=== PATIENT | female | born 1950 | race Caucasian/White ===

== ENCOUNTER 2020-08-30 16:57 | Inpatient (IN) ==
[2020-08-30] MEDS ORDERED: PHENYLEPHRINE 10 MG/1 ML VIAL IV ONE ×2 (17:15→20:06)
[2020-08-30] MEDS ORDERED: PAPAVERINE 60 MG/2 ML VIAL ONE (17:17)
[2020-08-30] MEDS ORDERED: VANCOMYCIN 1,000 MG VIAL ONE ×2 (17:18→18:06)
[2020-08-30] MEDS ORDERED: VANCOMYCIN 500 MG VIAL ONE (17:18)
[2020-08-30] MEDS ORDERED: MIDAZOLAM 10 MG/2 ML VIAL ONE ×4 (17:19→17:20)
[2020-08-30] MEDS ORDERED: SUFentanil 250 MCG/5 ML AMP ONE (17:22)
[2020-08-30] MEDS ORDERED: VECURONIUM 10 MG VIAL IV ONE ×3 (17:23→19:26)
[2020-08-30] MEDS ORDERED: ETOMIDATE 40 MG/20 ML VIAL IV ONE (17:25)
[2020-08-30] MEDS ORDERED: LIDOCAINE 2% 5 ML VIAL ONE ×2 (17:25→20:15)
[2020-08-30] MEDS ORDERED: AMINOCAPROIC ACID 5,000 MG/20 ML VIAL ONE (17:35)
[2020-08-30 18:22] LABS: ABG Base Excess -0.9 MMOL/L (-2.5-2.5); ABG HCO3 20.8 MMOL/L (20-26); ABG Oxygen Saturation 96.7 % (95-100); ABG PCO2 25.8 MM HG (35-48); ABG PH 7.524 (7.35-7.45); ABG PO2 86.2 MM HG (80-95); ABG TCO2 21.6 MMOL/L (23-27); Glucose Heart Surgery 148 MG/DL (74-106); Hemoglobin Heart Surgery 11.3 G/DL (12.0-16.0); Ionized Calcium Arterial 1.03 MMOL/L (1.21-1.46); Potassium Heart/CVR 3.4 MMOL/L (3.5-5.1); Sodium Heart/CVR 136 MMOL/L (135-145)
[2020-08-30 18:23] LABS: Patient Temperature 37 CELCIUS
[2020-08-30 19:08] LABS: Hematocrit Heart Surgery 19.9 PERCENT (37-47); PCO2 Patient Temp Venous 32.5 MM HG; PH Patient Temp Venous 7.461; Potassium Heart/CVR 4.6 MMOL/L (3.5-5.1); VBG Base Excess -0.2 MEQ/L (0-4); VBG HCO3 24.1 MEQ/L (24-28); VBG Oxygen Saturation 80.7 %; VBG PCO2 35.8 MMHG (41-51); VBG PH 7.432; VBG Total CO2 22.8 MMOL/L
[2020-08-30] MEDS ORDERED: PHENYLEPHRINE DRIP 40 MG/250 ML PREMIX IV ONE (19:09)
[2020-08-30] MEDS ORDERED: ALBUMIN 5% 12.5 GM/250 ML VIAL IV ONE (19:09)
[2020-08-30] MEDS ORDERED: POTASSIUM CHLORIDE RIDER 100 ML IV ONE (19:09)
[2020-08-30] MEDS ORDERED: PROTAMINE SULFATE 50 MG/5 ML VIAL IV ONE ×3 (19:10→21:50)
[2020-08-30 19:12] LABS: Hemoglobin Heart Surgery 6.3 G/DL (12.0-16.0)
[2020-08-30] MEDS ORDERED: methylPREDNISolone SOD SUC 125 MG/2 ML VIAL ONE (19:19)
[2020-08-30] MEDS ORDERED: diphenhydrAMINE 50 MG/1 ML VIAL ONE (19:19)
[2020-08-30] MEDS ORDERED: FAMOTIDINE 20 MG/2 ML VIAL IV ONE (19:21)
[2020-08-30] MEDS ORDERED: SODIUM CHLORIDE 0.9% 500 ML IV ONE (19:26)
[2020-08-30] MEDS ORDERED: LACTATED RINGERS 1,000 ML IV ONE (19:26)
[2020-08-30] MEDS ORDERED: SODIUM CHLORIDE 0.9% 1,000 ML IV ONE (19:26)
[2020-08-30] MEDS ORDERED: EPINEPHrine 1 MG/10 ML SYRINGE ONE (19:27)
[2020-08-30] MEDS ORDERED: PHENYLEPHRINE 1 MG/10 ML SYRINGE IV ONE (19:27)
[2020-08-30] MEDS ORDERED: HEPARIN/NACL 0.9% 2 UNITS/ML 1,000 ML IV ONE (19:27)
[2020-08-30] MEDS ORDERED: CALCIUM CHLORIDE 1,000 MG/10 ML VIAL IV ONE (19:29)
[2020-08-30] MEDS ORDERED: NITROGLYCERIN DRIP 50 MG/250 ML BOTTLE IV ONE (19:29)
[2020-08-30] MEDS ORDERED: THROMBIN TOPICAL (RECOMBINANT) 5,000 UNIT VIAL TOP ONE (19:36)
[2020-08-30 20:01] LABS: ABG Base Excess -2.5 MMOL/L (-2.5-2.5); ABG HCO3 22.3 MMOL/L (20-26); ABG PCO2 33.1 MM HG (35-48); ABG PH 7.419 (7.35-7.45); ABG TCO2 19.9 MMOL/L (23-27); Glucose Heart Surgery 306 MG/DL (74-106); Hematocrit Heart Surgery 25.4 PERCENT (37-47); Hemoglobin Heart Surgery 8.1 G/DL (12.0-16.0); Potassium Heart/CVR 4.8 MMOL/L (3.5-5.1)
[2020-08-30 20:05] LABS: Ionized Calcium Arterial 1.03 MMOL/L (1.21-1.46); PCO2 Patient Temp Arterial 33.1 MMHG; PH Patient Temp Arterial 7.419; Patient Temperature 37 CELCIUS; Sodium Heart/CVR 132 MMOL/L (135-145)
[2020-08-30] MEDS ORDERED: SODIUM CHLORIDE 0.9% 250 ML IV ONE (20:06)
[2020-08-30] MEDS ORDERED: ALBUMIN 25% 25 GM/100 ML VIAL IV ONE (20:13)
[2020-08-30] MEDS ORDERED: FUROSEMIDE 20 MG/2 ML VIAL ONE (20:14)
[2020-08-30] MEDS ORDERED: MANNITOL 100 GM/500 ML BAG IV ONE (20:14)
[2020-08-30] MEDS ORDERED: DEXTROSE 5% KCL 20 MEQ 20 MEQ/1,000 ML BAG IV ONE (20:14)
[2020-08-30] MEDS ORDERED: MAGNESIUM SULFATE 5 GM/10 ML VIAL IV ONE (20:14)
[2020-08-30] MEDS ORDERED: HEPARIN 10,000 UNIT/10 ML VIAL ONE (20:14)
[2020-08-30] MEDS ORDERED: methylPREDNISolone SOD SUC 1,000 MG/8 ML VIAL ONE (20:15)
[2020-08-30] MEDS ORDERED: SODIUM BICARBONATE 50 MEQ/50 ML VIAL IV ONE (20:16)
[2020-08-30] MEDS ORDERED: PROTAMINE SULFATE 250 MG/25 ML VIAL IV ONE (20:16)
[2020-08-30] MEDS ORDERED: DOBUTamine 500 MG/250 ML PREMIX IV ONE ×2 (20:21→21:00)
[2020-08-30] MEDS: DOBUTamine 500 MG/250 ML PREMIX IV PRN (20:42)
[2020-08-30] MEDS ORDERED: CEFUROXIME INJ 1,500 MG in SODIUM CHLORIDE 0.9% 100 ML IV ONE (20:47)
[2020-08-30] MEDS ORDERED: DEXTROSE 50% 25 GM/50 ML VIAL IV PRN ×3 (20:47→21:33)
[2020-08-30] MEDS ORDERED: GLUCAGON 1 MG VIAL IM PRN (20:47)
[2020-08-30 20:53] LABS: ABG Base Excess -2.4 MMOL/L (-2.5-2.5); ABG HCO3 22.4 MMOL/L (20-26); ABG Oxygen Saturation 99.6 % (95-100); ABG PCO2 32.8 MM HG (35-48); ABG PH 7.423 (7.35-7.45); ABG TCO2 19.7 MMOL/L (23-27)
[2020-08-30] MEDS ORDERED: HEPARIN/NACL 0.9% 2 UNITS/ML 500 ML IV ONE (20:53)
[2020-08-30 20:55] LABS: Bilirubin,Urine Negative (Negative); Blood, Urine Small mg/dL (Negative); Glucose,Urine (UA) Negative (Negative); Ketones,Urine Negative (Negative); Nitrite,Urine Negative (Negative); Protein,Urine 30 MG/DL; RBC,Urine 6 /HPF (0-4); Squamous Epithelial Cell,Urine Occasional /HPF (0-10); Urine Appearance CLEAR (Clear); Urine Color Straw (Yellow); Urine Specific Gravity 1.027 (1.001-1.035); Urine Urobilinogen < 2.0 EU/DL (0.2-1.0); WBC,Urine 1 /HPF (0-6)
[2020-08-30] MEDS ORDERED: SEVOFLURANE 1 UNIT/15 MINUTE INH ONE (20:59)
[2020-08-30] MEDS ORDERED: CHLORHEXIDINE 4% SOLN 118 ML BOTTLE TOP SCH (21:00)
[2020-08-30] MEDS ORDERED: SODIUM CHLORIDE 0.9% 1,000 ML IV SCH (21:00)
[2020-08-30] MEDS ORDERED: CHLORHEXIDINE 0.12% ORAL RINSE 60 ML BOTTLE SWISH/SPIT SCH (21:00)
[2020-08-30] MEDS: LACTATED RINGERS 1,000 ML IV PRN ×2 (21:15→23:17)
[2020-08-30] MEDS ORDERED: MIDAZOLAM 2 MG/2 ML VIAL IV PRN (21:33)
[2020-08-30] MEDS ORDERED: MIDAZOLAM 10 MG/2 ML VIAL IV PRN (21:33)
[2020-08-30] MEDS ORDERED: MAGNESIUM SULF RIDER 4 GM in PREMIX 1 EACH IV PRN (21:33)
[2020-08-30] MEDS ORDERED: NITROPRUSSIDE 100 MG in DEXTROSE 5% 250 ML IV PRN (21:33)
[2020-08-30] MEDS ORDERED: MORPHINE 10 MG/1 ML VIAL IV PRN (21:33)
[2020-08-30] MEDS ORDERED: PHENYLEPHRINE DRIP 40 MG/250 ML PREMIX IV PRN (21:33)
[2020-08-30] MEDS ORDERED: VECURONIUM 10 MG VIAL IV PRN ×2 (21:33)
[2020-08-30] MEDS ORDERED: ACETAMINOPHEN 650 MG SUPP RECTAL PRN (21:33)
[2020-08-30] MEDS ORDERED: MAGNESIUM SULF RIDER 2 GM in PREMIX 1 EACH IV PRN (21:33)
[2020-08-30] MEDS ORDERED: CALCIUM CHLORIDE 1,000 MG/10 ML SYRINGE IV PRN (21:33)
[2020-08-30 21:37] LABS: Basophils # 0.1 10*3/uL (0.0-0.2); Basophils % 0.3 % (0.0-0.8); Eosinophils # 0.1 10*3/uL (0.0-0.87); Eosinophils % 0.4 % (0.00-10.9); Hematocrit 27.3 VOL% (35.7-47.0); Hemoglobin 8.5 GM/DL (12.0-16.0); Immature Granulocytes Absolute 0.18 #; Lymphocytes # 1.3 10*3/uL (1.4-4.0); Lymphocytes % 7.2 % (21.3-54.2); Mean Corpuscular HGB Conc 31.1 GM/DL (32-36); Mean Corpuscular Volume 83.2 FL (87-102); Mean Platelet Volume 11.1 FL (9.6-12.0); Monocytes % 2.6 % (1.7-12.7); Neutrophils % 88.5 % (38.7-73.9); Platelet Count 238 T/CUMM (130-400); Red Blood Count 3.28 MC/CUMM (3.8-5.5); Red Cell Distribution Width 15.4 % (9.3-17.3); White Blood Count 17.8 T/CUMM (4-12)
[2020-08-30 21:52] LABS: INR 1.1; Partial Thromboplastin Time 33.9 SECS (23.9-33.8)
[2020-08-30 21:55] LABS: Albumin 2.7 G/DL (3.4-5.0); Bilirubin,Total 0.4 MG/DL (0.2-1.0); Calcium 7.9 MG/DL (8.5-10.1); Total Protein 5.2 G/DL (6.4-8.3)
[2020-08-30 22:15] LABS: CKMB % 11.1 %
[2020-08-30] MEDS: ALBUMIN 5% 12.5 GM in PREMIX 1 EACH IV PRN (22:15)
[2020-08-30 22:16] LABS: Troponin I 95.2 NG/ML (0.00-0.045)
[2020-08-30] MEDS ORDERED: FUROSEMIDE 40 MG/4 ML VIAL IV ONE (22:59)
[2020-08-30] MEDS: SODIUM CHLORIDE 0.45% 1,000 ML IV SCH ×2 (23:09)
[2020-08-30 23:15] LABS: ABG HCO3 20.3 MMOL/L (20-26); ABG Oxygen Saturation 99.9 % (95-100); ABG PCO2 32.7 MM HG (35-48); ABG TCO2 17.9 MMOL/L (23-27); Glucose Heart Surgery 302 MG/DL (74-106); Hematocrit Heart Surgery 27.2 PERCENT (37-47); Hemoglobin Heart Surgery 8.8 G/DL (12.0-16.0); Potassium Heart/CVR 3.9 MMOL/L (3.5-5.1)
[2020-08-30] MEDS: INSULIN REGULAR DRIP 100 ML IV SCH (23:30)
[2020-08-30] MEDS: POTASSIUM CHLORIDE RIDER 20 MEQ in PREMIX 1 EACH IV PRN (23:35)
[2020-08-30] MEDS ORDERED: SODIUM CHLORIDE 0.9% 1,000 ML IV PRN (23:51)
[2020-08-31] MEDS: CHLORHEXIDINE 0.12% ORAL RINSE 60 ML BOTTLE SWISH/SPIT SCH ×3 (00:24→21:13)
[2020-08-31] MEDS: ALBUMIN 5% 12.5 GM in PREMIX 1 EACH IV PRN ×2 (00:25→00:32)
[2020-08-31 00:32] LABS: ABG Base Excess -7.7 MMOL/L (-2.5-2.5); ABG HCO3 18.2 MMOL/L (20-26); ABG Oxygen Saturation 98.3 % (95-100); ABG PCO2 30.4 MM HG (35-48); ABG PH 7.351 (7.35-7.45); ABG TCO2 15.1 MMOL/L (23-27); Glucose Heart Surgery 311 MG/DL (74-106); Hematocrit Heart Surgery 34.9 PERCENT (37-47); Hemoglobin Heart Surgery 11.3 G/DL (12.0-16.0); Potassium Heart/CVR 3.8 MMOL/L (3.5-5.1)
[2020-08-31] MEDS: POTASSIUM CHLORIDE RIDER 20 MEQ in PREMIX 1 EACH IV PRN ×7 (00:37→20:18)
[2020-08-31] MEDS: INSULIN REGULAR 100 UNIT/ML IV PRN (01:18)
[2020-08-31] MEDS: POTASSIUM CHLORIDE RIDER 10 MEQ in PREMIX 1 EACH IV PRN ×4 (01:25→21:14)
[2020-08-31] MEDS ORDERED: VANCOMYCIN 1,000 MG VIAL ONE (01:36)
[2020-08-31] MEDS ORDERED: VECURONIUM 10 MG VIAL IV ONE (01:40)
[2020-08-31] MEDS ORDERED: MIDAZOLAM 10 MG/2 ML VIAL ONE (01:42)
[2020-08-31] MEDS ORDERED: ceFAZolin 1,000 MG VIAL ONE (02:32)
[2020-08-31] MEDS ORDERED: fentaNYL 100 MCG/2 ML VIAL ONE (02:32)
[2020-08-31] MEDS ORDERED: SEVOFLURANE 1 UNIT/15 MINUTE INH ONE ×3 (03:00)
[2020-08-31 03:52] LABS: ABG Base Excess -6.4 MMOL/L (-2.5-2.5); ABG HCO3 17.9 MMOL/L (20-26); ABG Oxygen Saturation 97.4 % (95-100); ABG PO2 111.5 MM HG (80-95); ABG TCO2 18.9 MMOL/L (23-27); Glucose Heart Surgery 247 MG/DL (74-106); Hemoglobin Heart Surgery 8.8 G/DL (12.0-16.0); Potassium Heart/CVR 3.5 MMOL/L (3.5-5.1)
[2020-08-31 04:04] LABS: Basophils % 0.1 % (0.0-0.8); Eosinophils % 0.1 % (0.00-10.9); Hematocrit 27.4 VOL% (35.7-47.0); Hemoglobin 8.8 GM/DL (12.0-16.0); Immature Granulocytes Absolute 0.17 #; Lymphocytes # 0.5 10*3/uL (1.4-4.0); Lymphocytes % 2.6 % (21.3-54.2); Mean Corpuscular HGB Conc 32.1 GM/DL (32-36); Mean Corpuscular Volume 84.8 FL (87-102); Mean Platelet Volume 10.8 FL (9.6-12.0); Monocytes % 4.3 % (1.7-12.7); Neutrophils % 91.9 % (38.7-73.9); Platelet Count 220 T/CUMM (130-400); Red Blood Count 3.23 MC/CUMM (3.8-5.5); Red Cell Distribution Width 15.5 % (9.3-17.3); White Blood Count 17.6 T/CUMM (4-12)
[2020-08-31 04:36] LABS: INR 1.1; PT Patient Result 11.9 SECS (9.8-11.9)
[2020-08-31 04:36] LABS: Bilirubin,Direct 0.34 MG/DL (0.0-0.20); Bilirubin,Total 1.1 MG/DL (0.2-1.0); Calcium 7.1 MG/DL (8.5-10.1); Osmolality,Calculated 294.1 MOS/KG (273-304); Potassium 3.6 MMOL/L (3.5-5.1); Total Protein 5.4 G/DL (6.4-8.3)
[2020-08-31 04:51] LABS: Hypochromasia 1+; Lymphocytes 6 % (20-55); Microcytosis 1+; Ovalocytes Slight; Platelet Estimate Adequate; Segmented Neutrophils 92 % (50-85); Total Cells Counted 100
[2020-08-31] MEDS ORDERED: PANTOPRAZOLE 40 MG VIAL IV ONE (05:20)
[2020-08-31] MEDS ORDERED: AMIODARONE INJ 150 MG in DEXTROSE 5% 100 ML IV ONE (05:20)
[2020-08-31] MEDS ORDERED: AMIODARONE 450 MG/9 ML VIAL IV ONE (05:22)
[2020-08-31] MEDS ORDERED: AMIODARONE 150 MG/3 ML VIAL ONE (05:23)
[2020-08-31] MEDS: AMIODARONE INJ 450 MG in DEXTROSE 5% 241 ML IV SCH ×2 (05:42→21:29)
[2020-08-31] MEDS: CEFUROXIME INJ 1,500 MG in SYRINGE 1 EACH IV SCH ×2 (05:47→16:20)
[2020-08-31 05:48] LABS: ABG Base Excess -7.4 MMOL/L (-2.5-2.5); ABG HCO3 18.4 MMOL/L (20-26); ABG Oxygen Saturation 98.9 % (95-100); ABG PCO2 30.7 MM HG (35-48); ABG PH 7.354 (7.35-7.45); ABG TCO2 15.4 MMOL/L (23-27); Glucose Heart Surgery 263 MG/DL (74-106); Hematocrit Heart Surgery 33.7 PERCENT (37-47); Hemoglobin Heart Surgery 10.9 G/DL (12.0-16.0); Potassium Heart/CVR 3.7 MMOL/L (3.5-5.1)
[2020-08-31] MEDS ORDERED: CALCIUM GLUCONATE 1,000 MG in SODIUM CHLORIDE 0.9% 100 ML IV ONE (06:05)
[2020-08-31] MEDS ORDERED: SODIUM BICARBONATE 50 MEQ/50 ML VIAL IV ONE ×2 (06:06→06:07)
[2020-08-31] MEDS ORDERED: CALCIUM GLUCONATE 1,000 MG/10 ML VIAL IV ONE (06:07)
[2020-08-31 07:45] LABS: ABG Base Excess -1.4 MMOL/L (-2.5-2.5); ABG HCO3 23.3 MMOL/L (20-26); ABG Oxygen Saturation 98.5 % (95-100); ABG PCO2 31.5 MM HG (35-48); ABG PH 7.452 (7.35-7.45); ABG TCO2 20.2 MMOL/L (23-27); Glucose Heart Surgery 212 MG/DL (74-106); Hematocrit Heart Surgery 27.7 PERCENT (37-47); Hemoglobin Heart Surgery 8.9 G/DL (12.0-16.0); Potassium Heart/CVR 3.1 MMOL/L (3.5-5.1)
[2020-08-31 08:12] LABS: Troponin I > 200.000 NG/ML (0.00-0.045)
[2020-08-31] MEDS: MORPHINE 4 MG/1 ML VIAL IV PRN ×2 (09:09→16:27)
[2020-08-31] MEDS ORDERED: NITROPRUSSIDE 50 MG/2 ML VIAL ONE (09:19)
[2020-08-31] MEDS: LACTATED RINGERS 250 ML IV PRN ×2 (09:30→09:50)
[2020-08-31 10:20] LABS: ABG Base Excess -1.1 MMOL/L (-2.5-2.5); ABG HCO3 23.5 MMOL/L (20-26); ABG Oxygen Saturation 97.9 % (95-100); ABG PCO2 39.6 MM HG (35-48); ABG PH 7.386 (7.35-7.45); ABG PO2 99.3 MM HG (80-95); ABG TCO2 21.1 MMOL/L (23-27); Glucose Heart Surgery 158 MG/DL (74-106); Hematocrit Heart Surgery 36.1 PERCENT (37-47); Hemoglobin Heart Surgery 11.7 G/DL (12.0-16.0); Potassium Heart/CVR 3.6 MMOL/L (3.5-5.1)
[2020-08-31 10:53] LABS: Calcium 7.8 MG/DL (8.5-10.1); Osmolality,Calculated 294.7 MOS/KG (273-304); Potassium 3.6 MMOL/L (3.5-5.1)
[2020-08-31 13:54] LABS: ABG Base Excess -0.4 MMOL/L (-2.5-2.5); ABG HCO3 24.1 MMOL/L (20-26); ABG Oxygen Saturation 94.1 % (95-100); ABG PCO2 39.1 MM HG (35-48); ABG PO2 70.6 MM HG (80-95); ABG TCO2 21.9 MMOL/L (23-27); Glucose Heart Surgery 151 MG/DL (74-106); Hematocrit Heart Surgery 33.2 PERCENT (37-47); Hemoglobin Heart Surgery 10.8 G/DL (12.0-16.0); Potassium Heart/CVR 4.2 MMOL/L (3.5-5.1)
[2020-08-31] MEDS: INSULIN REGULAR DRIP 100 ML IV SCH ×2 (16:00→22:36)
[2020-08-31 17:46] LABS: ABG Base Excess -0.4 MMOL/L (-2.5-2.5); ABG Oxygen Saturation 95.4 % (95-100); ABG PCO2 35.5 MM HG (35-48); ABG PH 7.428 (7.35-7.45); ABG PO2 75.7 MM HG (80-95); ABG TCO2 21.1 MMOL/L (23-27); Glucose Heart Surgery 131 MG/DL (74-106); Hematocrit Heart Surgery 33.7 PERCENT (37-47); Hemoglobin Heart Surgery 10.9 G/DL (12.0-16.0); Potassium Heart/CVR 3.5 MMOL/L (3.5-5.1)
[2020-08-31] MEDS ORDERED: FUROSEMIDE 40 MG/4 ML VIAL IV ONE (18:17)
[2020-08-31 20:08] LABS: ABG Base Excess 0.3 MMOL/L (-2.5-2.5); ABG HCO3 23.8 MMOL/L (20-26); ABG Oxygen Saturation 97.7 % (95-100); ABG PCO2 34.6 MM HG (35-48); ABG PH 7.456 (7.35-7.45); ABG PO2 114.6 MM HG (80-95); ABG TCO2 24.9 MMOL/L (23-27); Glucose Heart Surgery 109 MG/DL (74-106); Hemoglobin Heart Surgery 11.1 G/DL (12.0-16.0); Potassium Heart/CVR 3.6 MMOL/L (3.5-5.1)
[2020-08-31] MEDS: SODIUM CHLORIDE 0.45% 1,000 ML IV SCH ×2 (21:58→21:59)
[2020-08-31 23:17] LABS: ABG Base Excess 0.4 MMOL/L (-2.5-2.5); ABG HCO3 24.8 MMOL/L (20-26); ABG Oxygen Saturation 99.1 % (95-100); ABG PCO2 34.7 MM HG (35-48); ABG PH 7.449 (7.35-7.45); ABG TCO2 21.5 MMOL/L (23-27); Glucose Heart Surgery 152 MG/DL (74-106); Hematocrit Heart Surgery 33.6 PERCENT (37-47); Hemoglobin Heart Surgery 10.9 G/DL (12.0-16.0); Potassium Heart/CVR 4.1 MMOL/L (3.5-5.1)
[2020-08-31] MEDS: DOBUTamine 500 MG/250 ML PREMIX IV PRN (23:30)
[2020-09-01] MEDS: INSULIN REGULAR 100 UNIT/ML IV PRN (01:17)
[2020-09-01 03:04] LABS: ABG Base Excess 0.4 MMOL/L (-2.5-2.5); ABG HCO3 24.8 MMOL/L (20-26); ABG PCO2 34.5 MM HG (35-48); ABG PH 7.449 (7.35-7.45); ABG TCO2 21.6 MMOL/L (23-27); Glucose Heart Surgery 150 MG/DL (74-106); Hematocrit Heart Surgery 31.8 PERCENT (37-47); Hemoglobin Heart Surgery 10.3 G/DL (12.0-16.0); Potassium Heart/CVR 3.8 MMOL/L (3.5-5.1)
[2020-09-01 03:13] LABS: Basophils % 0.1 % (0.0-0.8); Hematocrit 30.1 VOL% (35.7-47.0); Hemoglobin 10.1 GM/DL (12.0-16.0); Immature Granulocytes % 0.3 %; Immature Granulocytes Absolute 0.05 #; Lymphocytes # 1.1 10*3/uL (1.4-4.0); Lymphocytes % 6.3 % (21.3-54.2); Mean Corpuscular HGB Conc 33.6 GM/DL (32-36); Mean Platelet Volume 11.5 FL (9.6-12.0); Monocytes % 5.9 % (1.7-12.7); Neutrophils % 87.4 % (38.7-73.9); Platelet Count 151 T/CUMM (130-400); Red Blood Count 3.67 MC/CUMM (3.8-5.5); Red Cell Distribution Width 15.9 % (9.3-17.3); White Blood Count 17.7 T/CUMM (4-12)
[2020-09-01 03:33] LABS: Albumin 2.8 G/DL (3.4-5.0); Bilirubin,Direct 0.14 MG/DL (0.0-0.20); Bilirubin,Total 0.4 MG/DL (0.2-1.0); Osmolality,Calculated 292.8 MOS/KG (273-304); Potassium 3.8 MMOL/L (3.5-5.1); Total Protein 5.8 G/DL (6.4-8.3)
[2020-09-01] MEDS: CEFUROXIME INJ 1,500 MG in SYRINGE 1 EACH IV SCH (04:48)
[2020-09-01] MEDS: POTASSIUM CHLORIDE RIDER 20 MEQ in PREMIX 1 EACH IV PRN ×2 (04:50→12:45)
[2020-09-01 06:28] LABS: ABG Base Excess 1.2 MMOL/L (-2.5-2.5); ABG HCO3 25.5 MMOL/L (20-26); ABG Oxygen Saturation 98.4 % (95-100); ABG PCO2 32.3 MM HG (35-48); ABG PH 7.482 (7.35-7.45); ABG TCO2 21.7 MMOL/L (23-27); Glucose Heart Surgery 128 MG/DL (74-106); Hematocrit Heart Surgery 32.2 PERCENT (37-47); Hemoglobin Heart Surgery 10.4 G/DL (12.0-16.0); Potassium Heart/CVR 4.3 MMOL/L (3.5-5.1)
[2020-09-01 07:17] LABS: CKMB % 12.7 %
[2020-09-01 07:25] LABS: Troponin I 59.8 NG/ML (0.00-0.045)
[2020-09-01] MEDS: CHLORHEXIDINE 0.12% ORAL RINSE 60 ML BOTTLE SWISH/SPIT SCH ×2 (08:15→20:41)
[2020-09-01] MEDS ORDERED: FUROSEMIDE 40 MG/4 ML VIAL IV ONE ×2 (08:16→18:22)
[2020-09-01] MEDS ORDERED: ASPIRIN CHEW 81 MG TABLET PO ONE (08:45)
[2020-09-01] MEDS: PANTOPRAZOLE 40 MG VIAL IV SCH (08:45)
[2020-09-01] MEDS: LEVOTHYROXINE 125 MCG TABLET PO SCH (08:50)
[2020-09-01 11:15] LABS: ABG Base Excess 1.8 MMOL/L (-2.5-2.5); ABG Oxygen Saturation 99.4 % (95-100); ABG TCO2 19.9 MMOL/L (23-27); Glucose Heart Surgery 150 MG/DL (74-106); Hematocrit Heart Surgery 40.3 PERCENT (37-47); Hemoglobin Heart Surgery 13.1 G/DL (12.0-16.0); Potassium Heart/CVR 4.2 MMOL/L (3.5-5.1)
[2020-09-01] MEDS: AMIODARONE INJ 450 MG in DEXTROSE 5% 241 ML IV SCH (11:30)
[2020-09-01] MEDS ORDERED: METOPROLOL TARTRATE 5 MG/5 ML VIAL IV ONE (12:00)
[2020-09-01] MEDS: ONDANSETRON 4 MG/2 ML VIAL IV PRN (12:05)
[2020-09-01] MEDS: INSULIN REGULAR 100 UNIT/ML SUBCUT SCH ×3 (12:25→20:40)
[2020-09-01] MEDS ORDERED: AMIODARONE INJ 450 MG in DEXTROSE 5% 241 ML IV SCH (12:30)
[2020-09-01 12:36] LABS: ABG Base Excess -0.6 MMOL/L (-2.5-2.5); ABG HCO3 22.5 MMOL/L (20-26); ABG Oxygen Saturation 97.3 % (95-100); ABG PCO2 31.6 MM HG (35-48); ABG PO2 105.2 MM HG (80-95); ABG TCO2 23.5 MMOL/L (23-27); Glucose Heart Surgery 176 MG/DL (74-106); Hemoglobin Heart Surgery 10.5 G/DL (12.0-16.0)
[2020-09-01] MEDS ORDERED: METOCLOPRAMIDE 10 MG/2 ML VIAL IV PRN (13:16)
[2020-09-01] MEDS ORDERED: PROMETHAZINE INJ 12.5 MG in SODIUM CHLORIDE 0.9% 50 ML IV PRN (13:16)
[2020-09-01] MEDS ORDERED: PROMETHAZINE 25 MG/1 ML VIAL ONE (13:17)
[2020-09-01] MEDS: PROMETHAZINE 25 MG/1 ML VIAL IV ONE (13:20)
[2020-09-01] MEDS ORDERED: rOPINIRole 1 MG TABLET PO ONE (14:10)
[2020-09-01] MEDS: MORPHINE 4 MG/1 ML VIAL IV PRN (15:58)
[2020-09-01] MEDS: oxyCODONE/ACETAMINOPHEN 5-325 MG TABLET PO PRN (18:15)
[2020-09-01] MEDS: clonazePAM 0.5 MG TABLET PO PRN (18:15)
[2020-09-01] MEDS: buPROPion SR 150 MG TABLET PO SCH (20:41)
[2020-09-01] MEDS: GABAPENTIN 300 MG CAPSULE PO SCH (20:41)
[2020-09-01] MEDS: METOPROLOL TARTRATE 25 MG TABLET PO SCH (20:41)
[2020-09-01] MEDS ORDERED: TEMAZEPAM 15 MG CAPSULE PO ONE (21:00)
[2020-09-01] MEDS ORDERED: clonazePAM 0.5 MG TABLET PO SCH (21:00)
[2020-09-01] MEDS: tiZANidine 4 MG TABLET PO SCH (22:25)
[2020-09-01] MEDS: ALBUMIN 5% 12.5 GM in PREMIX 1 EACH IV PRN (23:41)
[2020-09-02] MEDS: INSULIN REGULAR 100 UNIT/ML SUBCUT SCH ×6 (00:45→20:41)
[2020-09-02] MEDS: SODIUM CHLORIDE 0.45% 1,000 ML IV SCH ×2 (00:47)
[2020-09-02 03:44] LABS: Basophils % 0.2 % (0.0-0.8); Eosinophils % 0.2 % (0.00-10.9); Hemoglobin 9.3 GM/DL (12.0-16.0); Immature Granulocytes % 0.7 %; Immature Granulocytes Absolute 0.13 #; Lymphocytes # 2.2 10*3/uL (1.4-4.0); Lymphocytes % 11.7 % (21.3-54.2); Mean Platelet Volume 12.1 FL (9.6-12.0); Monocytes % 9.5 % (1.7-12.7); Neutrophils % 77.7 % (38.7-73.9); Platelet Count 155 T/CUMM (130-400); Red Blood Count 3.41 MC/CUMM (3.8-5.5); Red Cell Distribution Width 16.9 % (9.3-17.3); White Blood Count 18.5 T/CUMM (4-12)
[2020-09-02 04:09] LABS: Albumin 3.2 G/DL (3.4-5.0); Bilirubin,Direct 0.16 MG/DL (0.0-0.20); Bilirubin,Total 0.6 MG/DL (0.2-1.0); CKMB % 7.9 %; Calcium 7.7 MG/DL (8.5-10.1)
[2020-09-02 04:23] LABS: Troponin I 39.2 NG/ML (0.00-0.045)
[2020-09-02] MEDS: oxyCODONE/ACETAMINOPHEN 5-325 MG TABLET PO PRN ×3 (04:58→17:00)
[2020-09-02] MEDS: LEVOTHYROXINE 125 MCG TABLET PO SCH (05:47)
[2020-09-02] MEDS ORDERED: FUROSEMIDE 40 MG/4 ML VIAL IV ONE ×2 (07:32→22:22)
[2020-09-02] MEDS: ASPIRIN EC 325 MG TABLET PO SCH (09:17)
[2020-09-02] MEDS: METOPROLOL TARTRATE 25 MG TABLET PO SCH ×2 (09:18→20:18)
[2020-09-02] MEDS: CHLORHEXIDINE 0.12% ORAL RINSE 60 ML BOTTLE SWISH/SPIT SCH ×2 (09:18→20:42)
[2020-09-02] MEDS: GABAPENTIN 300 MG CAPSULE PO SCH ×2 (09:18→20:18)
[2020-09-02] MEDS: buPROPion SR 150 MG TABLET PO SCH ×2 (09:18→20:19)
[2020-09-02] MEDS: POTASSIUM CHLORIDE RIDER 20 MEQ in PREMIX 1 EACH IV PRN (09:24)
[2020-09-02] MEDS: AMIODARONE INJ 450 MG in DEXTROSE 5% 241 ML IV SCH (09:27)
[2020-09-02] MEDS: PANTOPRAZOLE 40 MG VIAL IV SCH (09:40)
[2020-09-02] MEDS: ONDANSETRON 4 MG/2 ML VIAL IV PRN (09:58)
[2020-09-02] MEDS: tiZANidine 4 MG TABLET PO SCH (20:18)
[2020-09-02] MEDS: rOPINIRole 0.25 MG TABLET PO SCH ×2 (20:18→20:41)
[2020-09-02] MEDS: ROSUVASTATIN 20 MG TABLET PO SCH (20:18)
[2020-09-02] MEDS: MORPHINE 4 MG/1 ML VIAL IV PRN (20:19)
[2020-09-02] MEDS: MONTELUKAST 10 MG TABLET PO SCH (20:19)
[2020-09-02] MEDS: LOSARTAN 25 MG TABLET PO SCH (20:19)
[2020-09-03] MEDS: INSULIN REGULAR 100 UNIT/ML SUBCUT SCH ×6 (00:24→20:16)
[2020-09-03] MEDS: AMIODARONE INJ 450 MG in DEXTROSE 5% 241 ML IV SCH ×2 (00:24→14:58)
[2020-09-03] MEDS: ALBUMIN 5% 12.5 GM in PREMIX 1 EACH IV PRN ×2 (01:14→01:40)
[2020-09-03] MEDS: ONDANSETRON 4 MG/2 ML VIAL IV PRN (03:43)
[2020-09-03 03:47] LABS: Basophils % 0.3 % (0.0-0.8); Eosinophils # 0.1 10*3/uL (0.0-0.87); Eosinophils % 0.5 % (0.00-10.9); Hematocrit 26.1 VOL% (35.7-47.0); Immature Granulocytes % 0.9 %; Immature Granulocytes Absolute 0.12 #; Lymphocytes # 1.7 10*3/uL (1.4-4.0); Mean Corpuscular HGB Conc 30.7 GM/DL (32-36); Mean Corpuscular Volume 89.7 FL (87-102); Mean Platelet Volume 12.6 FL (9.6-12.0); Neutrophils % 78.3 % (38.7-73.9); Platelet Count 124 T/CUMM (130-400); Red Blood Count 2.91 MC/CUMM (3.8-5.5); Red Cell Distribution Width 16.5 % (9.3-17.3); White Blood Count 13.3 T/CUMM (4-12)
[2020-09-03 04:18] LABS: Blood Urea Nitrogen 31 MG/DL (7-18); Carbon Dioxide 28 MMOL/L (21-32); Estimated Glom Filtration Rate 47 ML/MIN; Glucose 204 MG/DL (74-106); Osmolality,Calculated 289.5 MOS/KG (273-304); Sodium 139 MMOL/L (136-145)
[2020-09-03] MEDS: LEVOTHYROXINE 125 MCG TABLET PO SCH (05:53)
[2020-09-03] MEDS ORDERED: FUROSEMIDE 40 MG/4 ML VIAL IV ONE (07:05)
[2020-09-03] MEDS: ASPIRIN EC 325 MG TABLET PO SCH (09:04)
[2020-09-03] MEDS: FUROSEMIDE 40 MG TABLET PO SCH (09:04)
[2020-09-03] MEDS: glipiZIDE 10 MG TABLET PO SCH ×2 (09:04→20:16)
[2020-09-03] MEDS: GABAPENTIN 300 MG CAPSULE PO SCH ×2 (09:04→20:09)
[2020-09-03] MEDS: METOPROLOL TARTRATE 25 MG TABLET PO SCH ×2 (09:04→20:08)
[2020-09-03] MEDS: PANTOPRAZOLE 40 MG VIAL IV SCH (09:05)
[2020-09-03] MEDS: buPROPion SR 150 MG TABLET PO SCH ×2 (09:05→20:08)
[2020-09-03] MEDS: LOSARTAN 25 MG TABLET PO SCH (09:05)
[2020-09-03] MEDS: CHLORHEXIDINE 0.12% ORAL RINSE 60 ML BOTTLE SWISH/SPIT SCH ×2 (09:51→20:16)
[2020-09-03] MEDS: FLUCONAZOLE 100 MG TABLET PO SCH (16:53)
[2020-09-03] MEDS: oxyCODONE/ACETAMINOPHEN 5-325 MG TABLET PO PRN (18:13)
[2020-09-03] MEDS: tiZANidine 4 MG TABLET PO SCH (20:08)
[2020-09-03] MEDS: ROSUVASTATIN 20 MG TABLET PO SCH (20:08)
[2020-09-03] MEDS: rOPINIRole 0.25 MG TABLET PO SCH ×2 (20:08)
[2020-09-03] MEDS: AMIODARONE 200 MG TABLET PO SCH (20:09)
[2020-09-03] MEDS: MONTELUKAST 10 MG TABLET PO SCH (20:09)
[2020-09-03] MEDS: INSULIN GLARGINE 100 UNIT/ML SUBCUT SCH (20:16)
[2020-09-04] MEDS: INSULIN REGULAR 100 UNIT/ML SUBCUT SCH ×4 (00:09→12:17)
[2020-09-04] MEDS: ALBUMIN 5% 12.5 GM in PREMIX 1 EACH IV PRN (00:40)
[2020-09-04 04:51] LABS: Basophils % 0.3 % (0.0-0.8); Eosinophils # 0.3 10*3/uL (0.0-0.87); Eosinophils % 2.6 % (0.00-10.9); Hematocrit 28.9 VOL% (35.7-47.0); Hemoglobin 8.8 GM/DL (12.0-16.0); Immature Granulocytes % 1.3 %; Immature Granulocytes Absolute 0.14 #; Lymphocytes # 1.9 10*3/uL (1.4-4.0); Lymphocytes % 17.4 % (21.3-54.2); Mean Corpuscular HGB Conc 30.4 GM/DL (32-36); Mean Corpuscular Volume 89.8 FL (87-102); Mean Platelet Volume 11.6 FL (9.6-12.0); Monocytes % 8.4 % (1.7-12.7); Platelet Count 169 T/CUMM (130-400); Red Blood Count 3.22 MC/CUMM (3.8-5.5); Red Cell Distribution Width 15.9 % (9.3-17.3)
[2020-09-04 05:04] LABS: Calcium 8.1 MG/DL (8.5-10.1); Osmolality,Calculated 281.5 MOS/KG (273-304); Potassium 3.4 MMOL/L (3.5-5.1)
[2020-09-04] MEDS: LEVOTHYROXINE 125 MCG TABLET PO SCH (06:06)
[2020-09-04] MEDS: POTASSIUM CHLORIDE RIDER 20 MEQ in PREMIX 1 EACH IV PRN ×2 (06:15→09:26)
[2020-09-04] MEDS: glipiZIDE 10 MG TABLET PO SCH ×2 (09:19→20:33)
[2020-09-04] MEDS: AMIODARONE 200 MG TABLET PO SCH ×2 (09:20→20:25)
[2020-09-04] MEDS: FUROSEMIDE 40 MG TABLET PO SCH (09:20)
[2020-09-04] MEDS: buPROPion SR 150 MG TABLET PO SCH ×2 (09:20→20:25)
[2020-09-04] MEDS: LOSARTAN 25 MG TABLET PO SCH (09:20)
[2020-09-04] MEDS: GABAPENTIN 300 MG CAPSULE PO SCH ×2 (09:20→20:24)
[2020-09-04] MEDS: CHLORHEXIDINE 0.12% ORAL RINSE 60 ML BOTTLE SWISH/SPIT SCH ×3 (09:20→20:28)
[2020-09-04] MEDS: PANTOPRAZOLE 40 MG VIAL IV SCH (09:20)
[2020-09-04] MEDS: ASPIRIN EC 325 MG TABLET PO SCH (09:20)
[2020-09-04] MEDS: FLUCONAZOLE 100 MG TABLET PO SCH (09:20)
[2020-09-04] MEDS ORDERED: GLUCAGON 1 MG VIAL IM PRN (14:25)
[2020-09-04] MEDS ORDERED: SODIUM CHLOR 0.45% KCL 20 MEQ 20 MEQ/1,000 ML BAG IV SCH (14:25)
[2020-09-04] MEDS ORDERED: MAGNESIUM SULF RIDER 4 GM in PREMIX 1 EACH IV PRN (14:25)
[2020-09-04] MEDS ORDERED: DEXTROSE 50% 25 GM/50 ML VIAL IV PRN (14:25)
[2020-09-04] MEDS ORDERED: ZALEPLON 5 MG CAPSULE PO PRN (14:25)
[2020-09-04] MEDS ORDERED: ALUMINUM/MAGNES/SIMETH MAX STR 30 ML UDCUP PO PRN (14:25)
[2020-09-04] MEDS ORDERED: MAGNESIUM SULF RIDER 2 GM in PREMIX 1 EACH IV PRN (14:25)
[2020-09-04] MEDS ORDERED: ACETAMINOPHEN 325 MG TABLET PO PRN (14:25)
[2020-09-04] MEDS: PANTOPRAZOLE 40 MG TABLET PO SCH (14:35)
[2020-09-04] MEDS: FERROUS SULFATE 325 MG TABLET PO SCH (15:51)
[2020-09-04] MEDS: DOCUSATE SODIUM 100 MG CAPSULE PO SCH (15:51)
[2020-09-04] MEDS: POTASSIUM CHLORIDE 20 MEQ TABLET PO PRN ×2 (15:51→17:46)
[2020-09-04] MEDS: tiZANidine 4 MG TABLET PO SCH (20:24)
[2020-09-04] MEDS: rOPINIRole 0.25 MG TABLET PO SCH (20:25)
[2020-09-04] MEDS: INSULIN GLARGINE 100 UNIT/ML SUBCUT SCH (20:25)
[2020-09-04] MEDS: MONTELUKAST 10 MG TABLET PO SCH (20:25)
[2020-09-04] MEDS: ROSUVASTATIN 20 MG TABLET PO SCH (20:25)
[2020-09-05] MEDS: LEVOTHYROXINE 125 MCG TABLET PO SCH (05:29)
[2020-09-05] MEDS ORDERED: FUROSEMIDE 40 MG/4 ML VIAL IV ONE (06:00)
[2020-09-05 06:28] LABS: Basophils % 0.4 % (0.0-0.8); Eosinophils # 0.2 10*3/uL (0.0-0.87); Eosinophils % 2.1 % (0.00-10.9); Hematocrit 30.2 VOL% (35.7-47.0); Hemoglobin 9.2 GM/DL (12.0-16.0); Immature Granulocytes % 1.9 %; Immature Granulocytes Absolute 0.21 #; Lymphocytes # 1.6 10*3/uL (1.4-4.0); Lymphocytes % 14.6 % (21.3-54.2); Mean Corpuscular HGB Conc 30.5 GM/DL (32-36); Mean Corpuscular Volume 90.4 FL (87-102); Mean Platelet Volume 11.4 FL (9.6-12.0); Monocytes % 8.9 % (1.7-12.7); Neutrophils % 72.1 % (38.7-73.9); Platelet Count 225 T/CUMM (130-400); Red Blood Count 3.34 MC/CUMM (3.8-5.5); Red Cell Distribution Width 15.6 % (9.3-17.3); White Blood Count 11.1 T/CUMM (4-12)
[2020-09-05 07:11] LABS: Alanine Aminotransferase 17 U/L (13-56); Albumin 2.7 G/DL (3.4-5.0); Alkaline Phosphatase 62 U/L (45-117); Aspartate Amino Transferase 35 U/L (0-37); Bilirubin,Indirect 0.5 MG/DL (0.0-1.0); Blood Urea Nitrogen 21 MG/DL (7-18); Calcium 8.2 MG/DL (8.5-10.1); Carbon Dioxide 30 MMOL/L (21-32); Estimated Glom Filtration Rate 73 ML/MIN; Glucose 74 MG/DL (74-106); Osmolality,Calculated 282.3 MOS/KG (273-304); Potassium 3.8 MMOL/L (3.5-5.1); Sodium 141 MMOL/L (136-145); Total Protein 5.9 G/DL (6.4-8.3)
[2020-09-05] MEDS: GABAPENTIN 300 MG CAPSULE PO SCH ×2 (09:52→20:32)
[2020-09-05] MEDS: PANTOPRAZOLE 40 MG TABLET PO SCH (09:53)
[2020-09-05] MEDS: ASPIRIN EC 325 MG TABLET PO SCH (09:53)
[2020-09-05] MEDS: DOCUSATE SODIUM 100 MG CAPSULE PO SCH (09:54)
[2020-09-05] MEDS: AMIODARONE 200 MG TABLET PO SCH ×2 (09:54→20:32)
[2020-09-05] MEDS: FERROUS SULFATE 325 MG TABLET PO SCH (09:54)
[2020-09-05] MEDS: buPROPion SR 150 MG TABLET PO SCH ×2 (09:54→20:33)
[2020-09-05] MEDS: oxyCODONE/ACETAMINOPHEN 5-325 MG TABLET PO PRN (09:54)
[2020-09-05] MEDS: LOSARTAN 25 MG TABLET PO SCH (09:54)
[2020-09-05] MEDS: FLUCONAZOLE 100 MG TABLET PO SCH (09:54)
[2020-09-05] MEDS: glipiZIDE 10 MG TABLET PO SCH ×2 (09:54→21:43)
[2020-09-05] MEDS: FUROSEMIDE 40 MG TABLET PO SCH (09:54)
[2020-09-05] MEDS: POTASSIUM CHLORIDE 20 MEQ TABLET PO PRN ×2 (09:57→12:32)
[2020-09-05] MEDS ORDERED: METOPROLOL TARTRATE 25 MG TABLET PO ONE (12:01)
[2020-09-05] MEDS: CHLORHEXIDINE 0.12% ORAL RINSE 60 ML BOTTLE SWISH/SPIT SCH ×2 (12:36→21:43)
[2020-09-05] MEDS: tiZANidine 4 MG TABLET PO SCH (20:32)
[2020-09-05] MEDS: rOPINIRole 0.25 MG TABLET PO SCH (20:32)
[2020-09-05] MEDS: METOPROLOL TARTRATE 25 MG TABLET PO SCH (20:32)
[2020-09-05] MEDS: MONTELUKAST 10 MG TABLET PO SCH (20:32)
[2020-09-05] MEDS: clonazePAM 0.5 MG TABLET PO PRN (20:32)
[2020-09-05] MEDS: ROSUVASTATIN 20 MG TABLET PO SCH (20:32)
[2020-09-05] MEDS: INSULIN GLARGINE 100 UNIT/ML SUBCUT SCH (21:43)
[2020-09-06] MEDS: LEVOTHYROXINE 125 MCG TABLET PO SCH (05:29)
[2020-09-06 06:12] LABS: Basophils # 0.1 10*3/uL (0.0-0.2); Basophils % 0.4 % (0.0-0.8); Eosinophils # 0.2 10*3/uL (0.0-0.87); Eosinophils % 1.5 % (0.00-10.9); Hematocrit 32.3 VOL% (35.7-47.0); Hemoglobin 9.8 GM/DL (12.0-16.0); Immature Granulocytes % 2.7 %; Immature Granulocytes Absolute 0.35 #; Lymphocytes # 1.5 10*3/uL (1.4-4.0); Mean Corpuscular HGB Conc 30.3 GM/DL (32-36); Mean Platelet Volume 11.1 FL (9.6-12.0); Monocytes % 8.6 % (1.7-12.7); Neutrophils % 74.8 % (38.7-73.9); Platelet Count 288 T/CUMM (130-400); Red Blood Count 3.55 MC/CUMM (3.8-5.5); Red Cell Distribution Width 15.6 % (9.3-17.3); White Blood Count 12.8 T/CUMM (4-12)
[2020-09-06 06:44] LABS: Calcium 8.9 MG/DL (8.5-10.1); Osmolality,Calculated 280.5 MOS/KG (273-304); Potassium 4.1 MMOL/L (3.5-5.1)
[2020-09-06 06:50] LABS: Alanine Aminotransferase 20 U/L (13-56); Alkaline Phosphatase 68 U/L (45-117); Aspartate Amino Transferase 33 U/L (0-37); Bilirubin,Indirect 0.5 MG/DL (0.0-1.0); Blood Urea Nitrogen 21 MG/DL (7-18); Calcium 8.7 MG/DL (8.5-10.1); Carbon Dioxide 31 MMOL/L (21-32); Estimated Glom Filtration Rate 73 ML/MIN; Glucose 114 MG/DL (74-106); Osmolality,Calculated 282.4 MOS/KG (273-304); Potassium 4.2 MMOL/L (3.5-5.1); Sodium 140 MMOL/L (136-145); Total Protein 5.9 G/DL (6.4-8.3)
[2020-09-06] MEDS: PANTOPRAZOLE 40 MG TABLET PO SCH (09:24)
[2020-09-06] MEDS: glipiZIDE 10 MG TABLET PO SCH ×2 (09:24→21:22)
[2020-09-06] MEDS: GABAPENTIN 300 MG CAPSULE PO SCH ×2 (09:25→21:11)
[2020-09-06] MEDS: FUROSEMIDE 40 MG TABLET PO SCH (09:25)
[2020-09-06] MEDS: LOSARTAN 25 MG TABLET PO SCH (09:25)
[2020-09-06] MEDS: FERROUS SULFATE 325 MG TABLET PO SCH (09:25)
[2020-09-06] MEDS: buPROPion SR 150 MG TABLET PO SCH ×2 (09:26→21:11)
[2020-09-06] MEDS: METOPROLOL TARTRATE 25 MG TABLET PO SCH ×2 (09:26→21:11)
[2020-09-06] MEDS: DOCUSATE SODIUM 100 MG CAPSULE PO SCH (09:26)
[2020-09-06] MEDS: AMIODARONE 200 MG TABLET PO SCH ×2 (09:26→21:11)
[2020-09-06] MEDS: POLYETHYLENE GLYCOL POWDER 17 GM PACK PO SCH (09:27)
[2020-09-06] MEDS: ASPIRIN EC 325 MG TABLET PO SCH (09:27)
[2020-09-06] MEDS: FLUCONAZOLE 100 MG TABLET PO SCH (09:27)
[2020-09-06] MEDS: CHLORHEXIDINE 0.12% ORAL RINSE 60 ML BOTTLE SWISH/SPIT SCH ×2 (09:50→21:15)
[2020-09-06] MEDS: oxyCODONE/ACETAMINOPHEN 5-325 MG TABLET PO PRN (12:29)
[2020-09-06] MEDS: clonazePAM 0.5 MG TABLET PO PRN (16:07)
[2020-09-06] MEDS: rOPINIRole 0.25 MG TABLET PO SCH (21:11)
[2020-09-06] MEDS: tiZANidine 4 MG TABLET PO SCH (21:11)
[2020-09-06] MEDS: TEMAZEPAM 15 MG CAPSULE PO SCH (21:11)
[2020-09-06] MEDS: MONTELUKAST 10 MG TABLET PO SCH (21:11)
[2020-09-06] MEDS: ROSUVASTATIN 20 MG TABLET PO SCH (21:12)
[2020-09-06] MEDS: INSULIN GLARGINE 100 UNIT/ML SUBCUT SCH (21:25)
[2020-09-06] MEDS: ALBUTEROL 2.5 MG/3 ML NEB RESP TX PRN (21:44)
[2020-09-07] MEDS: ONDANSETRON 4 MG/2 ML VIAL IV PRN (04:41)
[2020-09-07] MEDS: ALBUTEROL 2.5 MG/3 ML NEB RESP TX PRN ×2 (04:44→09:35)
[2020-09-07 06:03] LABS: Basophils # 0.1 10*3/uL (0.0-0.2); Basophils % 0.8 % (0.0-0.8); Eosinophils # 0.3 10*3/uL (0.0-0.87); Eosinophils % 2.2 % (0.00-10.9); Hematocrit 30.6 VOL% (35.7-47.0); Hemoglobin 9.4 GM/DL (12.0-16.0); Immature Granulocytes % 4.3 %; Mean Corpuscular HGB Conc 30.7 GM/DL (32-36); Mean Platelet Volume 11.2 FL (9.6-12.0); Monocytes % 8.1 % (1.7-12.7); Neutrophils % 67.6 % (38.7-73.9); Platelet Count 309 T/CUMM (130-400); Red Blood Count 3.44 MC/CUMM (3.8-5.5); Red Cell Distribution Width 15.8 % (9.3-17.3); White Blood Count 11.7 T/CUMM (4-12)
[2020-09-07 06:17] LABS: Calcium 8.6 MG/DL (8.5-10.1); Osmolality,Calculated 283.4 MOS/KG (273-304); Potassium 3.9 MMOL/L (3.5-5.1)
[2020-09-07] MEDS: LEVOTHYROXINE 125 MCG TABLET PO SCH (06:39)
[2020-09-07] MEDS: glipiZIDE 10 MG TABLET PO SCH ×2 (08:58→20:50)
[2020-09-07] MEDS: GABAPENTIN 300 MG CAPSULE PO SCH ×2 (08:58→20:51)
[2020-09-07] MEDS: buPROPion SR 150 MG TABLET PO SCH ×2 (08:59→20:51)
[2020-09-07] MEDS: PANTOPRAZOLE 40 MG TABLET PO SCH (08:59)
[2020-09-07] MEDS: LOSARTAN 25 MG TABLET PO SCH (09:00)
[2020-09-07] MEDS: AMIODARONE 200 MG TABLET PO SCH ×2 (09:00→20:51)
[2020-09-07] MEDS: METOPROLOL TARTRATE 25 MG TABLET PO SCH ×2 (09:01→20:51)
[2020-09-07] MEDS: FUROSEMIDE 40 MG TABLET PO SCH (09:04)
[2020-09-07] MEDS: ASPIRIN EC 325 MG TABLET PO SCH (09:04)
[2020-09-07] MEDS: FERROUS SULFATE 325 MG TABLET PO SCH (09:04)
[2020-09-07] MEDS: POTASSIUM CHLORIDE 20 MEQ TABLET PO PRN ×2 (09:05→11:10)
[2020-09-07] MEDS: CHLORHEXIDINE 0.12% ORAL RINSE 60 ML BOTTLE SWISH/SPIT SCH ×2 (09:11→20:58)
[2020-09-07] MEDS: POLYETHYLENE GLYCOL POWDER 17 GM PACK PO SCH (09:11)
[2020-09-07] MEDS: DOCUSATE SODIUM 100 MG CAPSULE PO SCH (09:11)
[2020-09-07] MEDS: MAGNESIUM HYDROXIDE SUSP 30 ML UDCUP PO PRN (15:11)
[2020-09-07] MEDS: clonazePAM 0.5 MG TABLET PO PRN (15:11)
[2020-09-07] MEDS: TEMAZEPAM 15 MG CAPSULE PO SCH (20:51)
[2020-09-07] MEDS: rOPINIRole 0.25 MG TABLET PO SCH (20:51)
[2020-09-07] MEDS: MONTELUKAST 10 MG TABLET PO SCH (20:51)
[2020-09-07] MEDS: tiZANidine 4 MG TABLET PO SCH (20:51)
[2020-09-07] MEDS: ROSUVASTATIN 20 MG TABLET PO SCH (20:51)
[2020-09-07] MEDS: INSULIN GLARGINE 100 UNIT/ML SUBCUT SCH (20:54)
[2020-09-08] MEDS: LEVOTHYROXINE 125 MCG TABLET PO SCH (05:08)
[2020-09-08 05:59] LABS: Basophils # 0.1 10*3/uL (0.0-0.2); Basophils % 0.4 % (0.0-0.8); Eosinophils # 0.3 10*3/uL (0.0-0.87); Eosinophils % 2.1 % (0.00-10.9); Hemoglobin 8.8 GM/DL (12.0-16.0); Immature Granulocytes % 2.4 %; Immature Granulocytes Absolute 0.29 #; Lymphocytes # 1.8 10*3/uL (1.4-4.0); Lymphocytes % 14.7 % (21.3-54.2); Mean Corpuscular HGB Conc 29.3 GM/DL (32-36); Mean Corpuscular Volume 92.9 FL (87-102); Mean Platelet Volume 11.1 FL (9.6-12.0); Monocytes % 6.3 % (1.7-12.7); Neutrophils % 74.1 % (38.7-73.9); Platelet Count 341 T/CUMM (130-400); Red Blood Count 3.23 MC/CUMM (3.8-5.5); Red Cell Distribution Width 15.9 % (9.3-17.3); White Blood Count 12.1 T/CUMM (4-12)
[2020-09-08 06:24] LABS: Alanine Aminotransferase 17 U/L (13-56); Albumin 2.6 G/DL (3.4-5.0); Alkaline Phosphatase 71 U/L (45-117); Aspartate Amino Transferase 25 U/L (0-37); Bilirubin,Indirect 1.5 MG/DL (0.0-1.0); Blood Urea Nitrogen 17 MG/DL (7-18); Calcium 8.6 MG/DL (8.5-10.1); Carbon Dioxide 30 MMOL/L (21-32); Estimated Glom Filtration Rate 73 ML/MIN; Glucose 118 MG/DL (74-106); Osmolality,Calculated 279.5 MOS/KG (273-304); Potassium 4.1 MMOL/L (3.5-5.1); Sodium 139 MMOL/L (136-145)
[2020-09-08] MEDS: DOCUSATE SODIUM 100 MG CAPSULE PO SCH (09:37)
[2020-09-08] MEDS: PANTOPRAZOLE 40 MG TABLET PO SCH (09:37)
[2020-09-08] MEDS: glipiZIDE 10 MG TABLET PO SCH ×2 (09:37→20:38)
[2020-09-08] MEDS: GABAPENTIN 300 MG CAPSULE PO SCH ×2 (09:38→20:37)
[2020-09-08] MEDS: FUROSEMIDE 40 MG TABLET PO SCH (09:38)
[2020-09-08] MEDS: ASPIRIN EC 325 MG TABLET PO SCH (09:38)
[2020-09-08] MEDS: buPROPion SR 150 MG TABLET PO SCH ×2 (09:38→20:38)
[2020-09-08] MEDS: FERROUS SULFATE 325 MG TABLET PO SCH (09:39)
[2020-09-08] MEDS: METOPROLOL TARTRATE 25 MG TABLET PO SCH ×2 (09:39→20:38)
[2020-09-08] MEDS: LOSARTAN 25 MG TABLET PO SCH (09:40)
[2020-09-08] MEDS: MAGNESIUM HYDROXIDE SUSP 30 ML UDCUP PO PRN (09:41)
[2020-09-08] MEDS: POLYETHYLENE GLYCOL POWDER 17 GM PACK PO SCH (09:45)
[2020-09-08] MEDS: AMIODARONE 200 MG TABLET PO SCH ×2 (09:45→20:37)
[2020-09-08] MEDS: CHLORHEXIDINE 0.12% ORAL RINSE 60 ML BOTTLE SWISH/SPIT SCH ×2 (09:46→20:42)
[2020-09-08] MEDS: CLORAZEPATE 3.75 MG TABLET PO PRN (13:44)
[2020-09-08] MEDS: oxyCODONE/ACETAMINOPHEN 5-325 MG TABLET PO PRN ×2 (15:16→22:57)
[2020-09-08] MEDS: ALBUTEROL 2.5 MG/3 ML NEB RESP TX PRN (15:21)
[2020-09-08] MEDS: clonazePAM 0.5 MG TABLET PO PRN (17:25)
[2020-09-08] MEDS: MONTELUKAST 10 MG TABLET PO SCH (20:37)
[2020-09-08] MEDS: tiZANidine 4 MG TABLET PO SCH (20:37)
[2020-09-08] MEDS: ROSUVASTATIN 20 MG TABLET PO SCH (20:38)
[2020-09-08] MEDS: TEMAZEPAM 15 MG CAPSULE PO SCH (20:38)
[2020-09-08] MEDS: rOPINIRole 0.25 MG TABLET PO SCH (20:38)
[2020-09-08] MEDS: INSULIN GLARGINE 100 UNIT/ML SUBCUT SCH (20:41)
[2020-09-09 05:51] LABS: Basophils # 0.1 10*3/uL (0.0-0.2); Basophils % 0.5 % (0.0-0.8); Eosinophils # 0.4 10*3/uL (0.0-0.87); Eosinophils % 3.4 % (0.00-10.9); Hemoglobin 8.1 GM/DL (12.0-16.0); Immature Granulocytes Absolute 0.22 #; Lymphocytes # 2.1 10*3/uL (1.4-4.0); Mean Corpuscular Volume 91.8 FL (87-102); Mean Platelet Volume 11.3 FL (9.6-12.0); Monocytes % 6.7 % (1.7-12.7); Neutrophils % 68.4 % (38.7-73.9); Platelet Count 342 T/CUMM (130-400); Red Blood Count 2.94 MC/CUMM (3.8-5.5); Red Cell Distribution Width 15.8 % (9.3-17.3); White Blood Count 11.1 T/CUMM (4-12)
[2020-09-09] MEDS: LEVOTHYROXINE 125 MCG TABLET PO SCH (06:05)
[2020-09-09 06:08] LABS: Alanine Aminotransferase 16 U/L (13-56); Albumin 2.6 G/DL (3.4-5.0); Alkaline Phosphatase 71 U/L (45-117); Aspartate Amino Transferase 20 U/L (0-37); Bilirubin,Indirect 1.1 MG/DL (0.0-1.0); Blood Urea Nitrogen 15 MG/DL (7-18); Calcium 8.5 MG/DL (8.5-10.1); Carbon Dioxide 30 MMOL/L (21-32); Estimated Glom Filtration Rate 73 ML/MIN; Glucose 116 MG/DL (74-106); Osmolality,Calculated 276.7 MOS/KG (273-304); Potassium 4.1 MMOL/L (3.5-5.1); Sodium 138 MMOL/L (136-145); Total Protein 5.9 G/DL (6.4-8.3)
[2020-09-09] MEDS: FUROSEMIDE 40 MG TABLET PO SCH (09:20)
[2020-09-09] MEDS: glipiZIDE 10 MG TABLET PO SCH ×2 (09:20→21:21)
[2020-09-09] MEDS: METOPROLOL TARTRATE 25 MG TABLET PO SCH ×2 (09:20→21:19)
[2020-09-09] MEDS: FERROUS SULFATE 325 MG TABLET PO SCH (09:20)
[2020-09-09] MEDS: LOSARTAN 25 MG TABLET PO SCH (09:20)
[2020-09-09] MEDS: PANTOPRAZOLE 40 MG TABLET PO SCH (09:20)
[2020-09-09] MEDS: buPROPion SR 150 MG TABLET PO SCH ×2 (09:20→21:19)
[2020-09-09] MEDS: DOCUSATE SODIUM 100 MG CAPSULE PO SCH (09:20)
[2020-09-09] MEDS: AMIODARONE 200 MG TABLET PO SCH ×2 (09:20→21:19)
[2020-09-09] MEDS: GABAPENTIN 300 MG CAPSULE PO SCH ×2 (09:20→21:18)
[2020-09-09] MEDS: ASPIRIN EC 325 MG TABLET PO SCH (09:23)
[2020-09-09] MEDS: POLYETHYLENE GLYCOL POWDER 17 GM PACK PO SCH (09:34)
[2020-09-09] MEDS: CHLORHEXIDINE 0.12% ORAL RINSE 60 ML BOTTLE SWISH/SPIT SCH ×2 (09:34→21:21)
[2020-09-09] MEDS: CLORAZEPATE 3.75 MG TABLET PO PRN (13:22)
[2020-09-09] MEDS ORDERED: PHENAZOPYRIDINE 95 MG TABLET PO ONE (14:55)
[2020-09-09 15:37] LABS: Bilirubin,Urine Negative (Negative); Blood, Urine Large mg/dL (Negative); Glucose,Urine (UA) Negative (Negative); Ketones,Urine Negative (Negative); Nitrite,Urine Negative (Negative); Protein,Urine 100 MG/DL; RBC,Urine 2194 /HPF (0-4); Urine Appearance CLOUDY (Clear); Urine Color Red (Yellow); Urine Specific Gravity 1.009 (1.001-1.035); Urine Urobilinogen < 2.0 EU/DL (0.2-1.0); WBC,Urine 3031 /HPF (0-6)
[2020-09-09] MEDS: PHENAZOPYRIDINE 95 MG TABLET PO SCH (16:42)
[2020-09-09] MEDS: clonazePAM 0.5 MG TABLET PO PRN (17:21)
[2020-09-09] MEDS: ROSUVASTATIN 20 MG TABLET PO SCH (21:19)
[2020-09-09] MEDS: rOPINIRole 0.25 MG TABLET PO SCH (21:19)
[2020-09-09] MEDS: MONTELUKAST 10 MG TABLET PO SCH (21:19)
[2020-09-09] MEDS: INSULIN GLARGINE 100 UNIT/ML SUBCUT SCH (21:20)
[2020-09-09] MEDS: TEMAZEPAM 15 MG CAPSULE PO SCH (21:21)
[2020-09-09] MEDS: tiZANidine 4 MG TABLET PO SCH (21:22)
[2020-09-10 05:16] LABS: Basophils % 0.4 % (0.0-0.8); Eosinophils # 0.2 10*3/uL (0.0-0.87); Eosinophils % 2.1 % (0.00-10.9); Hematocrit 30.2 VOL% (35.7-47.0); Immature Granulocytes % 1.7 %; Immature Granulocytes Absolute 0.18 #; Lymphocytes # 1.7 10*3/uL (1.4-4.0); Lymphocytes % 15.4 % (21.3-54.2); Mean Corpuscular HGB Conc 29.8 GM/DL (32-36); Mean Corpuscular Volume 91.8 FL (87-102); Mean Platelet Volume 10.7 FL (9.6-12.0); Monocytes % 5.9 % (1.7-12.7); Neutrophils % 74.5 % (38.7-73.9); Platelet Count 380 T/CUMM (130-400); Red Blood Count 3.29 MC/CUMM (3.8-5.5); Red Cell Distribution Width 15.8 % (9.3-17.3); White Blood Count 10.7 T/CUMM (4-12)
[2020-09-10 05:37] LABS: Blood Urea Nitrogen 14 MG/DL (7-18); Calcium 8.3 MG/DL (8.5-10.1); Carbon Dioxide 32 MMOL/L (21-32); Estimated Glom Filtration Rate 57 ML/MIN; Glucose 147 MG/DL (74-106); Osmolality,Calculated 280.5 MOS/KG (273-304); Potassium 4.2 MMOL/L (3.5-5.1); Sodium 139 MMOL/L (136-145)
[2020-09-10] MEDS: LEVOTHYROXINE 125 MCG TABLET PO SCH (06:00)
[2020-09-10] MEDS: LEVOFLOXACIN 500 MG TABLET PO SCH (09:20)
[2020-09-10] MEDS: GABAPENTIN 300 MG CAPSULE PO SCH ×2 (09:20→20:55)
[2020-09-10] MEDS: buPROPion SR 150 MG TABLET PO SCH ×2 (09:20→20:56)
[2020-09-10] MEDS: PANTOPRAZOLE 40 MG TABLET PO SCH (09:20)
[2020-09-10] MEDS: DOCUSATE SODIUM 100 MG CAPSULE PO SCH (09:20)
[2020-09-10] MEDS: PHENAZOPYRIDINE 95 MG TABLET PO SCH ×2 (09:20→16:18)
[2020-09-10] MEDS: LOSARTAN 25 MG TABLET PO SCH (09:21)
[2020-09-10] MEDS: METOPROLOL TARTRATE 25 MG TABLET PO SCH ×2 (09:21→20:55)
[2020-09-10] MEDS: AMIODARONE 200 MG TABLET PO SCH ×2 (09:21→20:56)
[2020-09-10] MEDS: FERROUS SULFATE 325 MG TABLET PO SCH (09:21)
[2020-09-10] MEDS: FUROSEMIDE 40 MG TABLET PO SCH (09:21)
[2020-09-10] MEDS: POLYETHYLENE GLYCOL POWDER 17 GM PACK PO SCH (09:21)
[2020-09-10] MEDS: glipiZIDE 10 MG TABLET PO SCH ×2 (09:21→20:55)
[2020-09-10] MEDS: MAGNESIUM HYDROXIDE SUSP 30 ML UDCUP PO PRN (09:23)
[2020-09-10] MEDS: CHLORHEXIDINE 0.12% ORAL RINSE 60 ML BOTTLE SWISH/SPIT SCH ×2 (09:33→20:56)
[2020-09-10] MEDS: oxyCODONE/ACETAMINOPHEN 5-325 MG TABLET PO PRN (11:56)
[2020-09-10] MEDS: clonazePAM 0.5 MG TABLET PO PRN (17:08)
[2020-09-10] MEDS: ALBUTEROL 2.5 MG/3 ML NEB RESP TX PRN (20:19)
[2020-09-10] MEDS: TEMAZEPAM 15 MG CAPSULE PO SCH (20:54)
[2020-09-10] MEDS: ROSUVASTATIN 20 MG TABLET PO SCH (20:54)
[2020-09-10] MEDS: rOPINIRole 0.25 MG TABLET PO SCH (20:54)
[2020-09-10] MEDS: MONTELUKAST 10 MG TABLET PO SCH (20:55)
[2020-09-10] MEDS: tiZANidine 4 MG TABLET PO SCH (20:55)
[2020-09-10] MEDS: INSULIN GLARGINE 100 UNIT/ML SUBCUT SCH (20:56)
[2020-09-11] MEDS: LEVOTHYROXINE 125 MCG TABLET PO SCH (05:52)
[2020-09-11 05:59] LABS: Calcium 8.8 MG/DL (8.5-10.1); Osmolality,Calculated 279.4 MOS/KG (273-304); Potassium 4.4 MMOL/L (3.5-5.1)
[2020-09-11] MEDS: LOSARTAN 25 MG TABLET PO SCH (10:36)
[2020-09-11] MEDS: LEVOFLOXACIN 500 MG TABLET PO SCH (10:36)
[2020-09-11] MEDS: POLYETHYLENE GLYCOL POWDER 17 GM PACK PO SCH (10:36)
[2020-09-11] MEDS: FUROSEMIDE 40 MG TABLET PO SCH (10:36)
[2020-09-11] MEDS: GABAPENTIN 300 MG CAPSULE PO SCH ×2 (10:36→20:52)
[2020-09-11] MEDS: DOCUSATE SODIUM 100 MG CAPSULE PO SCH (10:37)
[2020-09-11] MEDS: buPROPion SR 150 MG TABLET PO SCH ×2 (10:37→20:53)
[2020-09-11] MEDS: PANTOPRAZOLE 40 MG TABLET PO SCH (10:37)
[2020-09-11] MEDS: PHENAZOPYRIDINE 95 MG TABLET PO SCH ×2 (10:37→17:14)
[2020-09-11] MEDS: METOPROLOL TARTRATE 25 MG TABLET PO SCH ×2 (10:37→20:52)
[2020-09-11] MEDS: glipiZIDE 10 MG TABLET PO SCH ×2 (10:37→20:52)
[2020-09-11] MEDS: FERROUS SULFATE 325 MG TABLET PO SCH (10:38)
[2020-09-11] MEDS: AMIODARONE 200 MG TABLET PO SCH ×2 (10:38→20:53)
[2020-09-11] MEDS: ONDANSETRON 4 MG/2 ML VIAL IV PRN (10:53)
[2020-09-11] MEDS: CHLORHEXIDINE 0.12% ORAL RINSE 60 ML BOTTLE SWISH/SPIT SCH ×2 (10:56→20:52)
[2020-09-11] MEDS: MAGNESIUM HYDROXIDE SUSP 30 ML UDCUP PO PRN (12:27)
[2020-09-11] MEDS: CLORAZEPATE 3.75 MG TABLET PO PRN (15:31)
[2020-09-11] MEDS: ALBUTEROL 2.5 MG/3 ML NEB RESP TX PRN (17:05)
[2020-09-11] MEDS: clonazePAM 0.5 MG TABLET PO PRN (17:14)
[2020-09-11] MEDS: TEMAZEPAM 15 MG CAPSULE PO SCH (20:51)
[2020-09-11] MEDS: MONTELUKAST 10 MG TABLET PO SCH (20:51)
[2020-09-11] MEDS: rOPINIRole 0.25 MG TABLET PO SCH (20:52)
[2020-09-11] MEDS: tiZANidine 4 MG TABLET PO SCH (20:53)
[2020-09-11] MEDS: ROSUVASTATIN 20 MG TABLET PO SCH (20:53)
[2020-09-11] MEDS: INSULIN GLARGINE 100 UNIT/ML SUBCUT SCH (20:53)
[2020-09-12] MEDS: LEVOTHYROXINE 125 MCG TABLET PO SCH (05:11)
[2020-09-12 05:57] LABS: Basophils % 0.4 % (0.0-0.8); Eosinophils # 0.1 10*3/uL (0.0-0.87); Hematocrit 30.6 VOL% (35.7-47.0); Hemoglobin 8.9 GM/DL (12.0-16.0); Immature Granulocytes % 1.1 %; Immature Granulocytes Absolute 0.12 #; Lymphocytes # 1.5 10*3/uL (1.4-4.0); Lymphocytes % 14.2 % (21.3-54.2); Mean Corpuscular HGB Conc 29.1 GM/DL (32-36); Mean Corpuscular Volume 92.4 FL (87-102); Monocytes % 5.3 % (1.7-12.7); Platelet Count 387 T/CUMM (130-400); Red Blood Count 3.31 MC/CUMM (3.8-5.5); Red Cell Distribution Width 15.8 % (9.3-17.3); White Blood Count 10.6 T/CUMM (4-12)
[2020-09-12 06:29] LABS: Calcium 8.6 MG/DL (8.5-10.1); Osmolality,Calculated 277.5 MOS/KG (273-304); Potassium 4.4 MMOL/L (3.5-5.1)
[2020-09-12 08:44] VITALS: BP 136/43
[2020-09-12] MEDS: POLYETHYLENE GLYCOL POWDER 17 GM PACK PO SCH (10:00)
[2020-09-12] MEDS: buPROPion SR 150 MG TABLET PO SCH (10:01)
[2020-09-12] MEDS: GABAPENTIN 300 MG CAPSULE PO SCH (10:01)
[2020-09-12] MEDS: FUROSEMIDE 40 MG TABLET PO SCH (10:01)
[2020-09-12] MEDS: glipiZIDE 10 MG TABLET PO SCH (10:01)
[2020-09-12] MEDS: PHENAZOPYRIDINE 95 MG TABLET PO SCH (10:01)
[2020-09-12] MEDS: AMPICILLIN 500 MG CAPSULE PO SCH ×2 (10:02→12:48)
[2020-09-12] MEDS: DOCUSATE SODIUM 100 MG CAPSULE PO SCH (10:02)
[2020-09-12] MEDS: AMIODARONE 200 MG TABLET PO SCH (10:02)
[2020-09-12] MEDS: LOSARTAN 25 MG TABLET PO SCH (10:02)
[2020-09-12] MEDS: FERROUS SULFATE 325 MG TABLET PO SCH (10:02)
[2020-09-12] MEDS: PANTOPRAZOLE 40 MG TABLET PO SCH (10:02)
[2020-09-12] MEDS: METOPROLOL TARTRATE 25 MG TABLET PO SCH (10:09)
[2020-09-12] MEDS: CHLORHEXIDINE 0.12% ORAL RINSE 60 ML BOTTLE SWISH/SPIT SCH (10:11)
[2020-09-12] MEDS: ONDANSETRON 4 MG/2 ML VIAL IV PRN (10:26)
[2020-09-13] MEDS ORDERED: ASPIRIN EC 81 MG TABLET PO SCH (09:00)
[2020-09-13] MEDS ORDERED: CLOPIDOGREL 75 MG TABLET PO SCH (09:00)
== END 2020-09-12 13:23 | disposition swing bed (61) | DRG 235 ==
LOC: N.CVR 20:48 → N.ICU 09-01 17:11 → N.TELES 09-04 13:51
PROC: IRTHORA (2020-09-11 09:25)